=== PATIENT | female | born 1980 | race Two or more races ===

== ENCOUNTER 2024-06-30 13:38 | Outpatient (RCR) | payer MEDICAID, SELFPAY ==
--- NOTE | 2024-06-30 14:14 | PT.OIERPT ---
PT OP Initial Eval Patient Information Outpatient Physical Therapy Treatment Date: 06/30/24 Visit Reasons: low back pain Medical Diagnosis: M54.5 Treatment Dx #1: LBP Start of Care: 06/30/24 Date of Onset: 02/17/24 Smoking Status Smoking Status: Never smoker Initial Assessment Subjective: Pt is 44 yr old georgian speaking female who fell in February onto her back at home and reports LBP and sensitivity since then. Increased pain with walking, tight clothing, lifting heavy and bending to the side. The L side of the L/s feels swollen. The therapy referral says L1 Fracture but she didn't know about that. PMH: hypothyroidism, thyroid tumor Imaging: with provider Pt goal: for the back not to hurt in order to work Objective: Trunk ArOM: ? B SB 30% of normal with pain to L ? Extension: 20% with pain around L4-5, L5-S1 ? Flexion: 5 from floor with LBP ? B rotation: 60% with pain ? TTP: moderate paraspinals L5-S1 ? Assessment: Pt presents with trunk FB, sidebending and extension sensitivity consistent with possible lumbar disk irritation and vertebral FX. Pt has poor/fair rehab potential to meet goals. Short Term and Detention Goals 1. Ind with HEP 2. Pt will do HH chores x30 mins with <=3/10 LBP 3. Improved ambulatory tolerance to community distances with <=3/10 LBP 4. Decreased TTP of L/S from mod to min Treatment Plan ?1. Manual therapy ? 2. Therex ? 3. Modalities as indicated, moist heat, ice, estim, mechanical traction Frequency and Duration: 2x a week for 12 visits plus eval Certification Dates: 06/30/24 to 09/28/24 Procedure Charges OP PT Eval Mod Complex 30 minutes: Yes
== END 2024-07-07 23:59 | disposition home or self-care (01) ==
LOC: CPTX 13:38
PROVIDERS: PCP Registered Nurse Community Health; Referring Provider Specialist; Visit Provider Specialist
DX: M54.50 Low back pain, unspecified (principal)
CPT/HCPCS: 97162

== ENCOUNTER 2024-07-27 15:30 | Outpatient (RCR) | payer MEDICAID, SELFPAY ==
--- NOTE | 2024-07-08 18:08 | PT.ODAYNRPT ---
PT Outpatient Daily Note OP Daily Note Outpatient Physical Therapy Treatment Date: 07/08/24 Visit Reasons: Low back pain Subjective: Same as time of evaluation Objective: See F/S for therex MT: STM L/S with flexbar x7' Assessment: HIgh tissue irritability of L/S with manual therapy and most movements Plan: Continue per POC Length of Time (minutes) of Treatment: 30 Minutes Procedure Charges Therapeutic Exercise 30 minutes: Yes
--- NOTE | 2024-07-12 17:52 | PT.ODAYNRPT ---
PT Outpatient Daily Note OP Daily Note Outpatient Physical Therapy Treatment Date: 07/12/24 Visit Reasons: Low back pain Subjective: Continued LBP Objective: See F/S for therex MT: STM L/S with flexbar x7' Assessment: HIgh tissue irritability of L/S with manual therapy around L4-5 on L side and with most movements Plan: Continue per POC Length of Time (minutes) of Treatment: 30 Minutes Procedure Charges Therapeutic Exercise 30 minutes: Yes
--- NOTE | 2024-07-20 18:09 | PT.ODAYNRPT ---
PT Outpatient Daily Note OP Daily Note Outpatient Physical Therapy Treatment Date: 07/20/24 Visit Reasons: Low back pain Subjective: Continued LBP Objective: See F/S for therex MT: STM L/S with flexbar x7' Assessment: HIgh tissue irritability of L/S with manual therapy around L4-5 on L side and with most movements Plan: Continue per POC Length of Time (minutes) of Treatment: 30 Minutes Procedure Charges Therapeutic Exercise 30 minutes: Yes
--- NOTE | 2024-07-27 14:58 | PT.ODS1RPT ---
PT OP Progress/Discharge Note Date of Service: 07/27/24 Progress Note/DC Note Progress Note/Discharge Note: DC Note Patient Information Visit Reasons: Low back pain Service Continue Service or Discharge: Discharge Discharge Date: 07/27/24 Status Subjective: Continued LBP and high sensitivity of the L/S if she wears pants the skin is very sensitive. Objective: See F/S for therex MT: STM L/S with flexbar x7'. TTP: high of L/S paraspinals Trunk FB: 6 from floor with LBP B rotation: 60% of full Assessment: Pt has attended the eval and 4 Rx sessions with high tissue irritability of L/S with manual therapy around L4-5 on L side and with most movements. The L1 Fx is painful and definately causing pain with trunk movements but the high skin sensitivity is likely related to what she is taking that may be causing nerve sensitivity. One idea is the high Vitamin D dosage without accompanying cofactor(s) may cause high TTP of the L/S. Plan: D/C with HEP Procedure Charges Therapeutic Exercise 30 minutes: Yes
== END 2024-08-07 23:59 | disposition home or self-care (01) ==
LOC: CPTX 15:30
PROVIDERS: PCP Specialist; Referring Provider Specialist; Visit Provider Specialist
DX: M54.50 Low back pain, unspecified (principal); S32.019D Unspecified fracture of first lumbar vertebra, subsequent encounter for fracture with routine healing; W19.XXXD Unspecified fall, subsequent encounter
CPT/HCPCS: 97110

== ENCOUNTER → 2024-09-03 | Outpatient (CLI) | payer MEDICAID, SELFPAY ==
--- NOTE | 2024-09-03 15:35 | XR_ITS ---
Examination: Lumbar spine, 5 views Technique: Lumbar spine AP, lateral, coned lateral lower lumbar spine, bilateral obliques 5 views Exam date and time: September 03, 2024 1537 hours INDICATIONS: History fall with fractures L1-L2, persistent pain FINDINGS: Mild osteopenia. No current lumbar fracture depicted Mild disc and posteriorly L5-S1 No spondylolisthesis IMPRESSION: No lumbar fracture identified
== END | disposition home or self-care (01) ==
LOC: CDIM 15:28
PROVIDERS: PCP Registered Nurse Community Health; Referring Provider Registered Nurse Community Health; Visit Provider Registered Nurse Community Health
DX: M54.50 Low back pain, unspecified (principal); S32.009S Unspecified fracture of unspecified lumbar vertebra, sequela; W19.XXXS Unspecified fall, sequela
CPT/HCPCS: 72110

== ENCOUNTER 2024-12-18 15:48 | Emergency (ER) | payer MEDICAID, SELFPAY ==
--- NOTE | 2024-12-18 16:47 | EDNOTE_ITS ---
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 Patient reports she was at her primary care doctor today who gave her a pain injection and reports that she still continued to have pain. She says that her abdominal pain is on her right side including her flank and she has not had pain like this before. She says that it continue to worsen and is is why she came to get evaluated. She is not a drinker. She has gotten her gallbladder removed. She is unsure if it is worse with foods. She says that certain positions worsen her pain. She denies anyone around her feeling like this. She denies any recent sick contacts or recent travel. She says she takes calcitriol and Synthroid. Her bowel movements are normal. She has no other complaints at this time. She denies any fever or chills, chest pain, SOB, or headache. Related Data Home Medications ?Medication ?Instructions ?Recorded ?Confirmed calcitriol 0.25 mcg capsule 0.25 mcg PO QDAY 08/03/19 07/15/22 levothyroxine 150 mcg tablet 150 mcg PO QDAY 08/03/19 07/15/22 Previous Rx's ?Medication ?Instructions ?Recorded alprazolam 0.5 mg tablet (Xanax) 0.5 mg PO QDAY claust rophobia, MRI 09/02/22 needed #5 tabs cyclobenzaprine 5 mg tablet 5 mg PO BID #14 tabs 12/18 naproxen 375 mg tablet 375 mg PO BID PRN pain #10 t abs 12/18/24 Allergies Allergy/AdvReac Type Severity Reaction Status Date / Time penicillin Allergy Uncoded 12/18/24 15:54 Review of Systems Review of Systems Narrative Review of Systems: 12 point ROS reviewed and is otherwise negative unless stated directly in the HPI ED Exam Narrative Physical exam: General: AAOx3, NAD, obese female, albanian speaking HEENT: Moist mucous membranes, conjunctiva clear, EOMI, PERRLA, Cardiovascular: S1, S2, radial pulses +2 bilat, RRR Pulmonary: CTAB bilat no cough, no wheezing GI: Tenderness to palpitation along the right upper and lower quadrant, no guarding, rigidity, rebound tenderness or distension, laparoscopic scars Extremities: No presence of trace or pitting edema in lower extremities bilaterally, dorsalis pedis pulses +2 bilaterally Neuro: AAOx3, no focal motor or sensory deficits in the UE or LE bilat Psych: Good judgement, thought and behavior Course Quality Measures none Orders Category Date Time Status EKG (ED ONLY) *Do not use* NOW Care 12/18/24 17:[address] abdomen pelvis wo con Stat Exams 12/18/24 17:07 Completed EKG (ED Only) Stat Exams 12/18/24 17:08 Draft CBC Stat Lab 12/18/24 17:42 Completed CMP [Comprehensive Metabolic Panel] Stat Lab 12/18/24 17:42 Completed Drug Screen,Urine Stat Lab 12/18/24 19:20 Completed Lactic Acid [Lactate (Lactic Acid)] Stat Lab 12/18/24 17:42 Completed Lipase Stat Lab 12/18/24 17:42 Completed Mag [Magnesium] Stat Lab 12/18/24 17:42 Completed Phosphorous Stat Lab 12/18/24 17:42 Completed Troponin I Stat Lab 12/18/24 17:42 Completed Urinalysis, C/S if Indicated Stat Lab 12/18/24 19:20 Completed HYDROcodone*/APAP 5/325 [[place] 5/325] Med 12/18/24 17:07 Discontinued 1 tab PO X1 ONE Ketorolac Inj [Toradol Inj] Med 12/18/24 22:32 Discontinued 30 mg IM X1 ONE Ketorolac Inj [Toradol Inj] Med 12/18/24 21:59 Discontinued 30 mg IVP X1 ONE calcitrioL [Rocaltrol] Med 12/18/24 22:03 Discontinued 0.25 mcg PO X1 ONE Vital Signs Vital signs: Vital Signs Temperature 98.0 F 12/18/24 17:12 Pulse Rate 77 12/18/24 17:12 Respiratory Rate 16 12/18/24 17:12 Blood Pressure 167/94 H 12/18/24 17:12 Pulse Oximetry (%) 98 12/18/24 17:12 Oxygen Delivery Method Room Air 12/18/24 17:12 Discharge Plan Plan Patient Disposition: HOME (Self Care) Discharge Disposition comment: Stable Prescriptions/Referrals Prescriptions/Med Rec: New naproxen 375 mg tablet 375 mg PO BID PRN (Reason: pain) Qty: 10 0RF Rx Instructions: With food cyclobenzaprine 5 mg tablet 5 mg PO BID Qty: 14 0RF No Action alprazolam [Xanax] 0.5 mg tablet 0.5 mg PO QDAY Qty: 5 0RF Rx Instructions: Take one tablet and assess response; if it is not sufficient take two before MRI levothyroxine 150 mcg Tablet 150 mcg PO QDAY calcitriol 0.25 mcg Capsule 0.25 mcg PO QDAY Referrals: Kai Aiken FNP [Primary Care Provider] - In 1 week Problem List Clinical Impression: Abdominal wall strain Impression comment: Abdominal wall strain Patient/Caregiver Discharge Instructions Discharge Activity: activity as tolerated Other Activity Instructions:: Avoid heavy lifting. Ice compresses to affected area. Education Materials: ED Muscle Strain, Abdomen Additional Instructions: Ice compresses to the affected area 3 times daily. Medication as directed. Avoid any heavy lifting pushing pulling etc. Gentle laxative recommended. Print Language: Georgian Stand Alone Forms: Amelia Award Info., Patient Portal Info Letter MDM Narrative MDM hospital course (for use when minimal MDM required): 1728: Basic labs, [place] 5 x 1, CT abdomen pelvis without contrast. EKG as well in addition to urine analysis and drug screen. Patient could have multiple different organ systems affect including gallbladder, appendiceal, kidneys and therefore that is why I will order a CT scan at this time versus ultrasound. 1800: Case discussed and passed on to ER Provider, Dr. Espino. Medication Administration(s) Medication Administration History Discontinued Medications Hydrocodone Bitart/Acetaminophen (Hydrocodone/[place]ap 5/325 Tablet) 1 tab PO X1 ONE Stop: 12/18/24 17:08 Last Admin: 12/18/24 17:40 Dose: Not Given Documented By: JYOTI Non-Admin Reason: Patient Refused Calcitriol (Calcitriol 0.25 Mcg Capsule) 0.25 mcg PO X1 ONE Stop: 12/18/24 22:04 Last Admin: 12/18/24 22:36 Dose: Not Given Documented By: SE Non-Admin Reason: Patient Refused Ketorolac Tromethamine (Ketorolac Inj 30 Mg/Ml Vial) 30 mg IVP X1 ONE Stop: 12/18/24 22:00 Ketorolac Tromethamine (Ketorolac Inj 30 Mg/Ml Vial) 30 mg IM X1 ONE Stop: 12/18/24 22:33 Last Admin: 12/18/24 22:36 Dose: 30 mg Documented By: SE Diagnosis Diagnoses ruled out and/or further discussions: Gastroenteritis, appendicitis, nephrolithiasis, SBO, PUD, post cholecystectomy syndrome
--- NOTE | 2024-12-18 17:07 | XR_ITS ---
Examination: CT abdomen and pelvis without contrast. Coronal 3-D reconstructions. Sagittal 2-D reconstructions. Date and time of exam: December 18, 2024, 7836 hours INDICATIONS: Right upper abdominal pain beginning 5 days ago COMPARISON: June 02, 2022 CTDI: vol (mGy): 10.9 DLP: (mGycm): 611 Technique: Axial images of the abdomen have been obtained, 3 mm slice thickness Intravenous contrast material has not been administered. Low dose protocols were performed. One or more of the following dose reduction techniques were used; automated exposure control, adjustment of the mA and/or KV according to patient size, use of iterative reconstruction technique. Findings: Hepatomegaly, 23 cm with diffuse fatty infiltration No focal liver or splenic lesions. Absent gallbladder No extrahepatic biliary tract dilatation Negative for pancreatitis Normal adrenal glands. No renal or ureteral calculi, no hydronephrosis Aorta normal size 10 mm fat-containing umbilical hernia. Normal appendix No bowel obstruction No pelvic mass Urinary bladder intact Mild osteopenia IMPRESSION: Hepatomegaly 23 cm with fatty infiltration No extrahepatic biliary tract dilatation No renal or ureteral calculi, no hydronephrosis Normal appendix No bowel obstruction Given the patient's presentation, consider hepatobiliary sonography follow-up
--- NOTE | 2024-12-18 17:08 | EKG_ITS ---
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
[2024-12-18 17:12] VITALS: BP 167/94; PULSE 77; RESP 16; TEMP 36.7; O2SAT 98
[2024-12-18 17:13] VITALS: BMI 34.0
[2024-12-18 17:49] LABS: Lactate (Lactic Acid) 1.1 mMol/L (0.4-2.0)
[2024-12-18 17:52] LABS: Basophils # (Auto) 0.0 Thou/mm3 (0.0-0.2); Basophils % (Auto) 0 % (0-2.5); Eosinophils # (Auto) 0.1 Thou/mm3 (0.0-0.5); Eosinophils % (Auto) 1 % (0-10); Hematocrit 37.0 % (36.0-46.0); Hemoglobin 12.3 g/dL (12.0-16.0); Immature Granulocytes Auto 0.11 Thou/mm3 (0.00-0.00); Lymphocytes # (Auto) 3.4 Thou/mm3 (1.0-4.8); Lymphocytes % (Auto) 26 % (10-50); Mean Corpuscular HGB Conc 33.2 g/dl (31.0-37.0); Mean Corpuscular Hemoglobin 27.2 pg (25.0-35.0); Mean Corpuscular Volume 82 fL (80-100); Monocytes # (Auto) 0.9 Thou/mm3 (0.0-0.8); Monocytes % (Auto) 7 % (0-12); Neutrophils # (Auto) 8.7 Thou/mm3 (1.8-7.7); Neutrophils % (Auto) 66 % (37-80); Nucleated Red Blood Cell # 0.00 Thou/mm3 (0.00-0.00); Nucleated Red Blood Cell % 0 /100 WBC (0); Platelet Count 375 Thou/mm3 (140-440); RDW Standard Deviation 39.8 fL (36.4-46.3); Red Blood Count 4.52 Miln/mm3 (4.00-5.20); White Blood Count 13.3 Thou/mm3 (3.6-11.0)
[2024-12-18 18:13] LABS: Alanine Aminotransferase 10 U/L (10-49); Albumin, Serum 4.4 gm/dL (3.5-5.0); Albumin/Globulin Ratio 1.5 (1.2-2.2); Alkaline Phosphatase 58 U/L (46-116); Anion Gap 12 (7-16); Aspartate Amino Transferase 10 U/L (0-34); BUN/Creatinine Ratio 13 Ratio (12-20); Bilirubin,Total 0.2 mg/dL (0.3-1.2); Blood Urea Nitrogen 16 mg/dL (9-23); Calcium 8.7 mg/dL (8.3-10.6); Calcium (Corrected) 8.7 mg/dL (8.5-10.1); Carbon Dioxide 26.5 mMol/L (20.0-31.0); Chloride 104 mMol/L (98-107); Creatinine (Component) 1.2 mg/dL (0.6-1.3); Estimated Creatinine Clearance 59.6 mL/min (>60); Globulin 2.9 gm/dL (2.3-3.5); Glucose 117 mg/dL (74-106); Lipase 53 U/L (12-53); Magnesium 1.9 mg/dL (1.6-2.6); Osmolality,Calculated 285 (275-295); Phosphorous 4.0 mg/dL (2.4-5.1); Potassium 3.6 mMol/L (3.4-5.1); Sodium 142 mMol/L (136-145); Total Protein 7.3 gm/dL (5.7-8.2); Troponin I < 0.002 ng/mL (0.0-0.045); eGFR 57 See Note
[2024-12-18 18:22] VITALS: BP 173/99; PULSE 68; RESP 19; TEMP 36.6; O2SAT 99
[2024-12-18 19:27] LABS: Collection Type, Urine Catheter; WBC,Urine 0 /hpf (0-5)
[2024-12-18 19:37] LABS: Amphetamine/Methamp Scrn,U Negative (Negative); Barbiturate Screen,Urine Negative (Negative); Benzodiazepines Screen,Urine Negative (Negative); Benzoylecgonine Screen, Ur Negative (Negative); Fentanyl Screen,Urine Negative (Negative); Opiate Screen,Urine Negative (Negative); THC Screen,Urine Negative (Negative)
[2024-12-18 19:58] LABS: Bacteria,Urine Rare; Bilirubin,Urine Negative (Negative); Blood,Urine 3+ (Negative); Clarity,Urine Clear (Clear/Hazy); Color,Urine Colorless (Lt Yel-Yel); Culture Indicated,Urine Not Indicated; Glucose, Urine Negative (Negative); Ketones,Urine Negative (Negative); Leukocyte Esterase,Urine Negative (Negative); Nitrite,Urine Negative (Negative); PH,Urine 6.5 (5.0-7.0); Protein,Urine Negative (Neg - Trace); RBC,Urine 14 /hpf (0-3); Specific Gravity,Urine 1.006 (1.001-1.035); Squamous Epithelial Cell,Urine 2 /hpf (0-5); Urobilinogen,Urine Negative mg/dL (0.0-1.0)
--- NOTE | 2024-12-18 20:23 | PD.EDABDPN ---
ED Abdominal Pain RME/HPI General Chief Complaint: Abdominal Pain Stated complaint: Right upper abdominal pain, vomiting Time seen by provider: 12/18/24 16:47 Arrival date/time: 12/18/24 15:48 RME / HPI RME / HPI narrative: Alla is a 44 y/o female with PMHx of bilateral papillary thyroid carcinoma status post total thyroidectomy who comes in for an evaluation of worsening right sided abdominal pain with associated vomiting of 2 episodes described as yellow in color, onset 2 days ago rated 7 out of 10 on the pain scale, did not help with a pain medicine injection she got earlier today. Patient reports she was at her primary care doctor today who gave her a pain injection and reports that she still continued to have pain. She says that her abdominal pain is on her right side including her flank and she has not had pain like this before. She says that it continue to worsen and is is why she came to get evaluated. She is not a drinker. She has gotten her gallbladder removed. She is unsure if it is worse with foods. She says that certain positions worsen her pain. She denies anyone around her feeling like this. She denies any recent sick contacts or recent travel. She says she takes calcitriol and Synthroid. Her bowel movements are normal. She has no other complaints at this time. She denies any fever or chills, chest pain, SOB, or headache. DR. GRAF MAIN ED EVALUATION: Patient presents with localized RLQ abdominal pain for approximately 5 days duration with occasional radiation to the right flank and right groin/inner thigh. Denies dysuria, urinary urgency and frequency. No fever or chills. No reported vomiting. PMH: Hypothyroidism PSH: Cholecystectomy, Complete Thyroidectomy Allergies: Penicillin - Anaphylactic Social: Negative Related Data Home Medications ?Medication ?Instructions ?Recorded ?Confirmed calcitriol 0.25 mcg capsule 0.25 mcg PO QDAY 08/03/19 07/15/22 levothyroxine 150 mcg tablet 150 mcg PO QDAY 08/03/19 07/15/22 Previous Rx's ?Medication ?Instructions ?Recorded alprazolam 0.5 mg tablet (Xanax) 0.5 mg PO QDAY claustrophobia, MRI 09/02/22 needed #5 tabs cyclobenzaprine 5 mg tablet 5 mg PO BID #14 tabs 12/18/24 naproxen 375 mg tablet 375 mg PO BID PRN pain #10 tabs 12/18/24 Allergies Allergy/AdvReac Type Severity Reaction Status Date / Time penicillin Allergy Uncoded 12/18/24 15:54 Review of Systems Review of Systems Systems Reviewed: All systems reviewed, normal except as documented Past Medical History Past Medical History NEUROLOGIC: Positive Migraine RESPIRATORY: Positive Asthma GASTROINTESTINAL: Positive Gall Bladder Disease (FOR THIS PROC), Ulcer and Gastroesophageal Reflux Disease (TAKES OMEPRAZOLE) ENDOCRINE: Positive Hypothyroidism and Thyroid Cancer PSYCHO/SOCIAL: Positive Depression OTHER HISTORY: Positive Radiation Therapy (2019), Chicken Pox and Cancer (THYROID HAD TOTAL THYROIDECTOMY) Family History FAMILY HISTORY: Positive Family Respiratory Disorders and Family Cancer Surgical History SURGICAL: Positive Thyroidectomy (TOTAL) ED Exam Narrative Physical exam: GEN. APPEARANCE: The patient is alert awake oriented X-3 in no distress, lying down comfortably, does not look ill/toxic. Patient has good eye contact. Patient is cooperative. VITALS: All vitals were reviewed and the pulse ox is 99% on room air which is normal according to my interpretation. HEENT: Normocephalic, atraumatic. Pupils are equal and reactive. Oral mucosa is moist. Patent Nares NECK: Supple, nontender, no thyromegaly, no meningismus, no JVD, no step offs CHEST: Symmetrical, atraumatic, and with equal expansion , Nontender on palpation no deformity and no crepitus. CARDIOVASCULAR: Heart regular rhythm no murmur or gallop rub or extra beats. LUNGS: Clear to auscultation bilaterally with symmetrical chest rise. No laboring tachypnea or wheezing. No intercostal subcostal retraction. No rales and no rhonchi. ABDOMEN: Obese, TTP RLQ extending towards the flank, no discrete peritoneal findings, no guarding or rebound tenderness. There are no abnormal masses palpated. Active and normal bowel sounds. EXTREMITIES: Nontender. No edema. No cyanosis. Patient is able to move all 4 extremities well, with full ROM and good CSM. SKIN: Warm and dry, no jaundice or rashes noted. MUSCULOSKELETAL: No lubar or midline bony tenderness. There is no CVA tenderness. No paraspinal muscle spasm or tenderness. NEURO: Patient is MAK x 4, Cranial nerves II through XII grossly intact. There is no focal neurologic deficits noted. GCS is 15, PNS and [employer] appear grossly intact. PSYCHIATRIC: Patient is in normal mood and affect, cooperative, no SI or HI or hallucinations. Course Quality Measures none Orders Category Date Time Status EKG (ED ONLY) *Do not use* NOW Care 12/18/24 17:[address] abdomen pelvis wo con Stat Exams 12/18/24 17:07 Completed EKG (ED Only) Stat Exams 12/18/24 17:08 Draft CBC Stat Lab 12/18/24 17:42 Completed CMP [Comprehensive Metabolic Panel] Stat Lab 12/18/24 17:42 Completed Drug Screen,Urine Stat Lab 12/18/24 19:20 Completed Lactic Acid [Lactate (Lactic Acid)] Stat Lab 12/18/24 17:42 Completed Lipase Stat Lab 12/18/24 17:42 Completed Mag [Magnesium] Stat Lab 12/18/24 17:42 Completed Phosphorous Stat Lab 12/18/24 17:42 Completed Troponin I Stat Lab 12/18/24 17:42 Completed Urinalysis, C/S if Indicated Stat Lab 12/18/24 19:20 Completed HYDROcodone*/APAP 5/325 [[place] 5/325] Med 12/18/24 17:07 Discontinued 1 tab PO X1 ONE Ketorolac Inj [Toradol Inj] Med 12/18/24 21:59 Once 30 mg IVP X1 ONE Vital Signs Vital signs: Vital Signs Temperature 98.0 F 12/18/24 17:12 Pulse Rate 77 12/18/24 17:12 Respiratory Rate 16 12/18/24 17:12 Blood Pressure 167/94 H 12/18/24 17:12 Pulse Oximetry (%) 98 12/18/24 17:12 Oxygen Delivery Method Room Air 12/18/24 17:12 Abdominal Pain MDM MDM Narrative MDM Narrative:: Scribe Attestation: I, Tere Martinez, amira scribing for and in the presence of Dr. Graf. Provider Notation: Although this document has been carefully reviewed, there may still be some phonetic and other typographical errors. These errors are purely grammatical due to imperfections in the software program and should not be construed in any way to compromise the substance of the patient's medical care during this visit. Patient presents with localized RLQ abdominal pain for approximately 5 days duration with occasional radiation to the right flank and right groin/inner thigh. Denies dysuria, urinary urgency and frequency. Please see PE findings. Laboratory markers demonstrate marginally elevated WBC of 13 with no left shift or bandemia. Serum chemistries essentially unremarkable. Troponin I undetected. UA with evidence of hematuria only. Toxicology screen negative. CT scan of the abdomen/pelvis demonstrates fatty hepatic infiltration. No ureteral calculi and normal appendix. Patient treated with IV fluids, and NSAIDS with mild to moderate relief. Tenderness appears to extend along course of external oblique musculature. Further inquiry indicates patient has been doing heavy lifting of garbage bags, suspect external oblique muscle strain. Will place on NSAIDS, muscle relaxants, cold compress application with recommendations to avoid heavy lifting, pushing, pulling. Recommend F/U with PMD, precautionary instructions issued. Patient data External records reviewed:: [facility] previous records (Reviewed prior ED records from 06/02/22. Patient was seen for Right flank pain.) Clinical information provided by:: patient Social determinants that could affect healthcare access:: none Patient has the following chronic illnesses:: Migraine, Asthma, Gall Bladder Disease, Ulcer, Gastroesophageal Reflux Disease, Hypothyroidism, Thyroid Cancer, Depression How is presenting disease/condition affected by chronic disease/condition?: exacerbated by Evaluation data The following diagnostics were reviewed and interpreted by me:: lab results, radiology exam(s) and EKG tracing(s) (EKG demonstrates sinus rhythm with ventricular rate of [address]pm, [address] changes noted, leftward axis, intervals are normal, per my interpretation.) Lab and/or radiology exams considered but not ordered:: None Interpretation Summary: RADIOLOGY Abdomen/Pelvis CT: Findings: Hepatomegaly, 23 cm with diffuse fatty infiltration No focal liver or splenic lesions. Absent gallbladder No extrahepatic biliary tract dilatation Negative for pancreatitis Normal adrenal glands. No renal or ureteral calculi, no hydronephrosis Aorta normal size 10 mm fat-containing umbilical hernia. Normal appendix No bowel obstruction No pelvic mass Urinary bladder intact Mild osteopenia IMPRESSION: Hepatomegaly 23 cm with fatty infiltration No extrahepatic biliary tract dilatation No renal or ureteral calculi, no hydronephrosis Normal appendix No bowel obstruction Given the patient's presentation, consider hepatobiliary sonography follow-up Medications / Prescriptions Medications or Prescriptions considered but not ordered:: None Medication administrations:: Medication Administration History Ketorolac Tromethamine (Ketorolac Inj 30 Mg/Ml Vial) 30 mg IVP X1 ONE Stop: 12/18/24 22:00 Discontinued Medications Hydrocodone Bitart/Acetaminophen (Hydrocodone/Apap 5/325 Tablet) 1 tab PO X1 ONE Stop: 12/18/24 17:08 Last Admin: 12/18/24 17:40 Dose: Not Given Documented By: JYOTI Non-Admin Reason: Patient Refused See above if any Consultations Consultation(s) initiated? (list below): No Diagnosis Differential diagnosis abdominal pain: abdominal pain, acute appendicitis, calculus of kidney, constipation, diverticulitis, gastroenteritis and small bowel obstruction Most likely diagnosis given after review of the tests above:: Strain of external oblique Admission Indicated Admission indicated?: not indicated Explain why admission is indicated or not indicated:: Patient does not meet admission criteria Admission Request Was there a request for admission?: No Disposition Plan Disposition Plan: Discharge Discharge Attestation Discharge Attestation: The patient and all family members were given an opportunity to ask questions and understood the discharge instructions. Discharge instructions specifically effects, indications for sooner follow up or return to the emergency department, and the expected course of current diagnosis. Patient condition: Stable Discharge Plan Plan Patient Disposition: HOME (Self Care) Prescriptions/Referrals Prescriptions/Med Rec: No Action alprazolam [Xanax] 0.5 mg tablet 0.5 mg PO QDAY Qty: 5 0RF Rx Instructions: Take one tablet and assess response; if it is not sufficient take two before MRI levothyroxine 150 mcg Tablet 150 mcg PO QDAY calcitriol 0.25 mcg Capsule 0.25 mcg PO QDAY Referrals: Kai Aiken FNP [Primary Care Provider] - In 1 week Problem List Clinical Impression: Abdominal wall strain Patient/Caregiver Discharge Instructions Print Language: Portuguese Stand Alone Forms: Amelia Award Info., Patient Portal Info Letter
[2024-12-18 21:00] VITALS: BP 151/90; PULSE 66; RESP 19; TEMP 36.6; O2SAT 98
[2024-12-18] MEDS: KETOROLAC INJ 30 MG/ML VIAL IM (22:36)
== END 2024-12-18 22:42 | disposition home or self-care (01) ==
PROVIDERS: Emergency Provider Emergency Medicine
DX: S39.011A Strain of muscle, fascia and tendon of abdomen, initial encounter (principal); X58.XXXA Exposure to other specified factors, initial encounter; E03.9 Hypothyroidism, unspecified
CPT/HCPCS: 36415; 74176; 80053; 80307; 81001; 83605; 83690; 83735; 84100; 84484; 85025; 93005; 96372; 99283; J1885

== ENCOUNTER → 2025-01-10 | Outpatient (CLI) | payer MEDICAID, SELFPAY ==
--- NOTE | 2025-01-10 14:00 | XR_ITS ---
EXAMINATION: Thyroid sonography complete TECHNIQUE: Grayscale sonographic images thyroid lobes Date and time: January 10, 2025, 1421 hours INDICATIONS: Bilateral neck pain for months, thyroidectomy 2018 FINDINGS: Absent thyroid tissue Soft tissue lymph nodes in the neck, the largest on the right side 2.6 cm, 1.6 cm, the left side 2.6 cm, 1.2 cm IMPRESSION: Significant cervical lymphadenopathy Recommend CT soft tissue neck post intravenous contrast follow-up
== END | disposition home or self-care (01) ==
LOC: CDIM 13:57
PROVIDERS: PCP Student in an Organized Health Care Education/Training Program; Referring Provider Student in an Organized Health Care Education/Training Program; Visit Provider Student in an Organized Health Care Education/Training Program
DX: R59.0 Localized enlarged lymph nodes (principal)
CPT/HCPCS: 76536